=== PATIENT | male | born 1935 | race Caucasian/White ===

== ENCOUNTER 2017-07-17 07:22 | Outpatient (CLI) | END 2017-07-17 07:23 | disposition short-term general hospital (02) | LOC: AMBL 07:22 | PROVIDERS: ATTEND Internal Medicine | DX: M25.551 Pain in right hip (principal); M25.561 Pain in right knee; S80.211A Abrasion, right knee, initial encounter; W01.0XXA Fall on same level from slipping, tripping and stumbling without subsequent striking against object, initial encounter ==

== ENCOUNTER 2018-01-03 12:16 | Outpatient (CLI) | END 2018-01-03 12:17 | disposition home or self-care (01) | LOC: LAB 12:16 | PROVIDERS: ATTEND Internal Medicine | DX: K62.5 Hemorrhage of anus and rectum (principal); D64.9 Anemia, unspecified | CPT/HCPCS: 36415; 80053; 82607; 82728; 82746; 83540; 83550; 84466; 85025; 85045 ==

== ENCOUNTER 2018-03-17 16:21 | Emergency (ER) ==
[2018-03-17 16:30] VITALS: BP 159/75; TEMP 97.5; BMI 22.8
--- NOTE | 2018-03-17 17:30 | ED.PDOC ---
General ED Provider: Dr. CELESTINO GARCIA Chief Complaint: Altered Mental Status Stated Complaint: Increasing confusion over past 3 or 4 days Time Seen by Physician: 18:00 Mode of Arrival: Walk-In Information Source: Family Exam Limitations: Dementia (Information regarding confusion development per healthcare recruiter; patient not a relaible historian) Primary Care Provider: ALEXIS GONZALEZ Nursing and Triage Documentation Reviewed and Agree: Yes Does patient meet sepsis criteria?: No System Inflammatory Response Syndrome: Not Applicable Sepsis Protocol: For patient's 13 years and over: Temp is 96.8 and below OR 101 and greater Pulse >90 BPM Resp >20/minute Acutely Altered Mental Status Are patient's symptoms suggestive of a new infection, such as: -Pneumonia -Skin, Soft Tissue -Endocarditis -UTI -Bone, Joint Infection -Implantable Device -Acute Abdominal Infection -Wound Infection -Meningitis -Blood Stream Catheter Infection -Unknown Review of Systems - Review Of Systems Constitutional: Reports: No symptoms Neurological: Reports: Cognitive dysfunction (Dementia; developing confusion) All Other Systems: Reviewed and Negative Past Medical History - Past Medical History Previously Healthy: Yes (Dementia; resides in [place] for same) Endocrine: Reports: None Cardiovascular: Reports: CAD Respiratory: Reports: None Hematological: Reports: None Gastrointestinal: Reports: None Genitourinary: Reports: Other (BPH) Neuro/Psych: Reports: Dementia Musculoskeletal: Reports: Back Pain (back history - surgery), Other (Temporal Arteritis; blind R eye/partial L eye) Cancer: Reports: Unknown - Surgical History General Surgical History: Reports: CABG, Other (Back surgery) - Family History Family History: Reports: Unknown - Social History Smoking Status: Never smoker Hx Substance Use: No Alcohol Screening: None Physical Exam - Physical Exam Appearance: Well-appearing ENT: Nose normal, Oropharynx normal Neck: Supple Respiratory: Airway patent, Breath sounds clear, Breath sounds equal, Respirations nonlabored Cardiovascular: RRR, Pulses normal (bilat radial) GI/: Soft, Nontender Musculoskeletal: Normal strength, ROM intact, No edema Skin: Warm, Dry, Normal color Neurological: Sensation intact, Motor intact Psychiatric: Affect appropriate (Cordial; reportedly baseline) Critical Care Note - Critical Care Note Total Time (mins): 20 Course - Course Hematology/Chemistry: 03/17/18 17:41 03/17/18 17:41 Orders, Labs, Meds: Lab Review 10/01/2503/17/18 03/17/18 17:41 17:41 18:30 WBC 8.89 RBC 3.92 L Hgb 12.8 L Hct 38.5 L MCV 98.2 H MCH 32.7 H MCHC 33.2 RDW Coeff of [place] 13.9 Plt Count 223 Immature Gran % (Auto) 4.4 Neut % (Auto) 61.1 Lymph % (Auto) 16.1 [place] % (Auto) 13.6 H Eos % (Auto) 3.8 Baso % (Auto) 1.0 Immature Gran # (Auto) 0.4 Neut # (Auto) 5.4 Lymph # (Auto) 1.4 [place] # (Auto) 1.2 Eos # (Auto) 0.3 Baso # (Auto) 0.1 Sodium 143.0 Potassium 4.25 Chloride 111.0 H Carbon Dioxide 26.2 Anion Gap 10.05 BUN 25.8 H Creatinine 1.26 H Estimated GFR (MDRD) 55.00 BUN/Creatinine Ratio 20.47 Glucose 85.5 Calcium 8.43 Total Bilirubin 0.31 AST 17.7 ALT 10.9 Alkaline Phosphatase 53.8 L Total Protein 6.14 L Albumin 3.45 L Globulin 2.69 Albumin/Globulin Ratio 1.28 Urine Color Yellow Urine Clarity Clear Urine pH 5.0 Ur Specific [place] 1.020 Urine Protein Negative Urine Glucose (UA) Negative Urine Ketones Negative Urine Blood Negative Urine Nitrite Negative Urine Bilirubin Negative Urine Urobilinogen 0.2 Ur Leukocyte Esterase Negative Orders Category Date Time Status CBC W/ AUTO DIFF Stat LAB 03/17/18 17:41 Completed COMPREHENSIVE METABOLIC PANEL Stat LAB 03/17/18 17:41 Completed URINALYSIS C & S IF INDICATED Stat LAB 03/17/18 18:30 Completed Sodium Chloride 0.9% [Sodium Chloride] 1,000 ml MEDS 03/17/18 17:28 Active IV BOLUS Medications Generic Name Dose Route Start Last Admin Trade Name Freq PRN Reason Stop Dose Admin Sodium Chloride 1,000 mls @ 500 mls/hr 03/17/18 17:28 03/17/18 17:48 Sodium Chloride IV 03/17/18 19:27 500 mls/hr BOLUS STA Administration Vital Signs: Temp Pulse Resp BP Pulse Ox 03/17/18 16:21 97.5 F L 63 16 159/75 H 94 L Departure - Departure Time of Disposition: 18:47 Disposition: HOME SELF-CARE Discharge Problem: Confusion Instructions: Dementia (ED), Altered Mental Status (ED) Condition: Stable Pt referred to PMD for follow-up: Yes (Follow up) IPMP verified?: No (No indication) Additional Instructions: Follow up with primary care - call office tomorrow and let them know how you are doing. NH to evaluate overnight for stability and baseline changes. Allergies/Adverse Reactions: Allergies No Known Allergies Allergy (Unverified 03/17/18 16:30) Home Medications: Ambulatory Orders Acetaminophen [Tylenol Extra Strength] 650 mg PO DAILY 03/17/18 Aspirin [Aspirin Chewable] 81 mg PO DAILYWM 03/17/18 Digoxin [Lanoxin] 125 mcg PO DAILY 03/17/18 Ferrous Sulfate [Feosol] 325 mg PO DAILY 03/17/18 Lorazepam [Ativan] 0.5 mg PO BID 03/17/18 Omeprazole [Prilosec] 20 mg PO QDAC 03/17/18 Prednisone 5 mg PO DAILYWM 03/17/18 Quetiapine Fumarate [Seroquel] 100 mg PO DAILY 03/17/18 Sotalol HCl [Betapace] 80 mg PO BID 03/17/18 Terazosin HCl [Hytrin] 5 mg PO DAILY 03/17/18 Tramadol HCl [Ultram] 50 mg PO DAILY 03/17/18 Triamterene/Hydrochlorothiazid [Maxzide 37.5 mg-25 mg Tablet] 1 each PO DIRECTED 03/17/18
[2018-03-17] MEDS: SODIUM CHLORIDE 1,000 ML IV STA (17:48)
== END 2018-03-17 19:01 | disposition home or self-care (01) ==
LOC: ED 16:21
DX: R41.82 Altered mental status, unspecified (principal); F03.90 Unspecified dementia, unspecified severity, without behavioral disturbance, psychotic disturbance, mood disturbance, and anxiety; Z79.899 Other long term (current) drug therapy
CPT/HCPCS: 36415; 80053; 81001; 85025; 96360; 99283